=== PATIENT | female | born 1945 | race Two or more races ===

== ENCOUNTER → 2017-06-11 | Outpatient (CLI) | payer BC ==
[~2017-06-11] MED LIST: CARV12.5 PO; GABA-279 PO; HYDR-3713 PO; MEGE20TA3 PO; TRAM50TA2 PO
--- NOTE | 2017-06-27 01:33 | ECWPNPC ---
PATIENT NAME: JOBY PEREZ : 1945 GENDER: FEMALE VISIT DATE: 06/11/2017 DISCHARGE DATE: 06/11/17 1406 VISIT LOCKED DATE TIME: PHYSICIAN: MARIA DOLORES CHRISTIANSEN RESOURCE: MARIA DOLORES CHRISTIANSEN REASON FOR APPOINTMENT 1. RT. ABDOMINAL PAIN HISTORY OF PRESENT ILLNESS FALL RISK SCREENING: SCREENING :NO FALLS IN THE PAST YEAR PAIN SCREENING: PATIENT HAS A COMPLAINT OF ACUTE OR CHRONIC PAIN :YES TODAY'S VISIT: NOTES: REFERRED BY DR AKOSUA CARDENAS/[facility]OME[facility] S/P LAPROSCOPIC DEROOFING OF LIVER CYST 07/16. WAS PAIN FREE FOR 4 MONTHS. PREVIOUSLY THE CYST WOULD BE DRAINED AND WOULD EXPERIENCE ABOUT 3 MONTHS PAIN RELIEF.. ONSET OF PAIN AND CYST ISSUES WAS 6 YEARS AGO. PAIN RETURNS IN A GRADUAL MANNER. CT WAS DONE AND CYST HAD NOT ENLARGED. IT CAN FEEL IF PAIN GOES STRAIGHT THROUGH HER. USUALLY IS IN RIGHT UPPER QUADRANT AND REFERRS TO THE BACK, SOME TIMES AT BACK TO FRONT. STANDING AT SINK AND OTHER ACTIVITIES CAN AGGREVATED THE PAIN. DOES NOT USUALLY OCCUR WHEN LYING DOEN. HEATING PAD CAN HELP. PAIN STARTED THEN LIVER ISSSUE NOTED. NO MRI OF SPINE WAS DONE. NO LOSS OF BOWEL CONTROL. . CURRENT MEDICATIONS TAKING LISINOPRIL 5 MG TABLET 1 TABLET ORALLY ONCE A DAY TAKING CARVEDILOL 12.5 MG TABLET ORALLY TAKING LEVOTHYROXINE SODIUM 100 MCG TABLET 1 TABLET ON AN EMPTY STOMACH IN THE MORNING ORALLY ONCE A DAY TAKING MELATONIN 5 MG TABLET 1 TABLET AT BEDTIME NEEDED WITH FOOD ORALLY ONCE A DAY TAKING FISH OIL 1200 MG CAPSULE 2 CAPSULE ORALLY ONCE A DAY MEDICATION LIST REVIEWED AND RECONCILED WITH THE PATIENT PAST MEDICAL HISTORY PULMONARY EMBOLISM IVC FILTER PLACED ACUTE KIDNEY INJURY ARTHRITIS GERD CATARACT HTN THYROID HEPATIC CYST ALLERGIES N.K.D.A. SURGICAL HISTORY CHOLECYSTECTOMY TUBAL LIGATION MULTIPLE ERCP HEPATIC CYST DRAINAGE X4 HEPATIC CYST DEROOFED FAMILY HISTORY FATHER: MOTHER: 79 YRS, DIAGNOSED WITH DIABETES, HEART DISEASE 1 BROTHER(S) - HEALTHY. 3 SON(S) , 3 DAUGHTER(S) - HEALTHY. 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 CHRISTIAN [id number] [employer] LANGUAGE LANGUAGES SPOKEN:ALBANIAN EDUCATION LEVEL OF EDUCATION:HIGH SCHOOL LEARNING BARRIERS / SPECIAL NEEDS HEARING IMPAIRED?NO VISION IMPAIRED?YES :CORRECTIVE LENSES COGNITIVELY IMPAIRED?NO READINESS TO LEARN?YES LEARNING PREFERENCES?YES :BOOKLETS, HANDOUTS SPECIAL DEVICES?NO PAIN CLINIC PFS, CLERGY, PUBLIC HEALTH REFERRALS PFS REFERRAL NEEDED?NO CLERGY REFERRAL NEEDED?NO PUBLIC HEALTH REFERRAL NEEDED?NO WAS THE PROVIDER NOTIFIED OF ANY PERTINENT INFO?NO HAS THE PATIENT BEEN EDUCATED REGARDING HIS/HER PLAN OF CARE?YES HAS THE PATIENT BEEN EDUCATED REGARDING PAIN, THE RISK FOR PAIN, THE IMPORTANCE OF EFFECTIVE PAIN MANAGEMENT, AND THE PAIN ASSESSMENT PROCESS?YES PATIENT: ____. ADVANCE DIRECTIVES HEALTH CARE PROXY?YES NAME OF HCP CLAUS JACKSON CONTACT # FOR HCP [phone] DO YOU HAVE A DNR?NO LIVING WILL?NO POWER OF PROOF CARRIER?YES NAME OF POA? CLAUS JACKSON PHONE # OF POA? [phone] RETIRED: YES. HOSPITALIZATION/MAJOR DIAGNOSTIC PROCEDURE SURGERY RELATED REVIEW OF SYSTEMS REVIEWED BY: PROVIDER: MARIA DOLORES ABDULP . CONSTITUTIONAL: LEVEL OF FUNCTIONALITY NOT ACTIVE - HAS NOTED RECENT WEIGHT GAIN DESPITE NO DIET CHANGES . ANY CHANGE IN YOUR MEDICAL CONDITION? NO . CHILLS NO . FEVER NO . INFECTION: DO YOU HAVE NEW INFECTIONS? NO . DO YOU HAVE HISTORY OF MRSA? NO . MUSCULOSKELETAL: ANY NEW PATTERNS OF PAIN OR NUMBNESS? NO - HAS BOWEL URGENCY. NOTES STOOLS ARE PALE IN COLOR . SYTEMIC LUPUS NO . GASTROENTEROLOGY: ANY NEW CHANGE IN BOWEL CONTROL? NO . BARRETTS ESOPHAGUS NO . CIRRHOSIS NO . HEPATITIS NO . LIVER FAILURE NO . ACID REFLUX YES - FOUND ON ENDOSCOPY - NO SYMPTOMS . UNEXPLAINED WEIGHT LOSS NO . GENITOURINARY: ANY NEW CHANGE IN BLADDER CONTROL? NO - HAS BLADDER URGENCY . IS THERE A CHANCE YOU COULD BE ? NO . HEMATOLOGY/LYMPH: DO YOU TAKE ANY BLOOD THINNERS? (FOR EXAMPLE- COUMADIN, PLAVIX, AGGRENOX, PLATEL, PRADAXA, OR XARELTO) NO . WHEN WAS YOUR LAST DOSE? DATE: TIME: . LOW PLATELET COUNT NO . SICKLE CELL DISEASE NO . VON WILLIEBRANDS NO . FACTOR V LEIDEN NO . THALLASEMIA NO . ANEMIA NO . EASY BRUISING NO . NEUROLOGY: HAVE YOU FALLEN IN THE PAST 6 MONTHS? NO . ANY NEW EXTREMITY NUMBNESS OR WEAKNESS? NO . HEAD INJURY NO . DEMENTIA NO . CEREBRAL PALSY NO . MULTIPLE SCLEROSIS NO . DIZZINESS NO . HEADACHE NO . STROKES NO . VERTIGO NO . CARDIOLOGY: DO YOU HAVE A PACEMAKER OR DEFIBRILLATOR? NO . ANGINA NO . HEART ATTACK NO . HEART SURGERY NO . CONGESTIVE HEART FAILURE/FLUID OVERLOAD NO . CHEST PAIN NO . HIGH BLOOD PRESSURE ON MEDICATION(S) . IRREGULAR HEART BEAT CONDUCTION DELAYS - SEES DR GUNN Q 6 MONTHS . RESPIRATORY: HAVE YOU BEEN SICK IN THE PAST WEEK? NO . FEVER NO . FLU LIKE SYMPTOMS? NO . CPAP NO . BYPAP NO . ASTHMA NO . EMPHYSEMA NO . CHRONIC LUNG DISEASES NO . SHORTNESS OF BREATH ON EXERTION NO . COUGH NO . SNORING NO . NOTES: PULMONARY EMBOLI 2016 - HAS GI BLEED AND THEN LIVER CYST FILLED WITH BLOOD. NOW OFF BLOOD THINNERS . INTEGUMENTARY: DO YOU HAVE ANY RASHES OR OPEN SORES? NO . ALLERGIC/IMMUNO: ARE YOU ALLERGIC TO SHELLFISH OR IV DYE? NO . ANY NEW ALLERGIES? NO . PSYCHIATRIC: DO YOU HAVE THOUGHTS OF HURTING YOURSELF OR SOMEONE ELSE? NO . ARE YOU ABUSED, NEGLECTED, OR IN AN UNSAFE ENVIRONMENT? NO . ENDOCRINOLOGY: ARE YOU DIABETIC? NO . THYROID DISORDER HYPOTHYROID - ON REPLACEMENT RECENTLY INCREASED BY DR Eric SCHUMACHER . OTHER: DO YOU NEED ANY PRESCRIPTIONS? NO . IF YES, PLEASE LIST: ____ . ANY NEW PROBLEMS WITH YOUR MEDICATIONS? NO . WHEN DID YOU LAST EAT? ____ . WHEN DID YOU LAST DRINK? ____ . WHAT DID YOU LAST DRINK? ____ . NAME OF PERSON DRIVING YOU HOME? ____ . DO YOU HAVE ANY OTHER QUESTIONS OR CONCERNS NO . SKIN: EASY BRUISING UNKNOWN SOURCE . VITAL SIGNS WT 238 LBS, HT 63 IN, BMI 42.16 INDEX, BP 159/82 MM HG, HR 70 /MIN, RR 16 /MIN, TEMP 98.6 F, OXYGEN SAT % 97%, NA INITIALS 12:53. EXAMINATION GENERAL EXAMINATION: PSYCHALERT , ORIENTED X 3 , APPROPRIATE MOOD AND AFFECT , EXCELLANT HISTORIAN. HEENT:NORMOCEPHALIC, NO LYMPHADENOPATHY, NO THYROMEGLY. LUNGS:CLEAR TO AUSCULTATION BILATERALLY, NO WHEEZES, RALES OR RHONCHI. NO INCREASE INN PAIN WITH DEEP BREATH. HEART:NORMAL S1S2, NO MURMURS, CLICK OR RUBS, NO CAROTID BRUITS. ABDOMEN:SOFT, NON-TENDER, NO ORGANOMEGALY, BOWEL SOUNDS ARE NORMAL. MUSCULOSKELETAL:MUSCLE STRENGTH TESTING 5/5 BILATERAL UPPER AND LOWER EXTREMITIES. TENDER WITH PALPATION OVER LOW THORACIC AND LUMBAR SPINOUS PROCESSES.. EXTREMITIES:NO EDEMA. ASSESSMENTS RIGHT UPPER QUADRANT ABDOMINAL PAIN - R10.11 (PRIMARY) PAIN IN THORACIC SPINE - M54.6 OTHER CHRONIC PAIN - G89.29 TREATMENT RIGHT UPPER QUADRANT ABDOMINAL PAIN START TRAMADOL HCL TABLET, 50 MG, 1 TABLET NEEDED, ORALLY, EVERY 6 HRS PRN PAIN, 30 DAY(S), 120, REFILLS 0 [facility] MRI SPINE,THORACIC WITHOUT [id number],SUSAN M 06/11/2017 1:56:45 PM > CERVICAL AND THORACIC SYRINX NOTES: WALK EVERY DAY. PROCEDURE CODES FA211 ESTABILISHED PATIENT LOCATED WITHIN [facility] CHARGE DISPOSITION & COMMUNICATION FOLLOW UP 1 MONTH (REASON: CHECK AUTH FOR THORACIC MRI . ABD PAIN) ELECTRONICALLY SIGNED BY BRENDEN CHEATHAM ON 06/26/2017 AT 07:10 PM EDT DISCLAIMER : THIS IS A VISIT SUMMARY EXTRACTED FROM THE [employer] CHART. IT IS NOT A COPY OF THE [employer] PROGRESS NOTE. ALTON
== END ==
LOC: M PAIN 13:30
PROVIDERS: ATTEND Nurse Practitioner Family
DX: G89.29 Other chronic pain (principal); R10.11 Right upper quadrant pain; M54.6 Pain in thoracic spine; K21.9 Gastro-esophageal reflux disease without esophagitis; I10 Essential (primary) hypertension; E03.9 Hypothyroidism, unspecified; Z79.899 Other long term (current) drug therapy

== ENCOUNTER → 2017-07-25 | Outpatient (CLI) | payer BC ==
--- NOTE | 2017-07-25 23:27 | ECWPNPC ---
PATIENT NAME: JOBY PEREZ : 1945 GENDER: FEMALE VISIT DATE: 07/25/2017 DISCHARGE DATE: 07/25/17 0959 VISIT LOCKED DATE TIME: PHYSICIAN: MARIA DOLORES CHRISTIANSEN RESOURCE: MARIA DOLORES CHRISTIANSEN REASON FOR APPOINTMENT 1. REVIEW MRI HISTORY OF PRESENT ILLNESS HISTORY OF PRESENT ILLNESS: PAIN THE PATIENT DESCRIBES THE PAIN... FALL RISK SCREENING: SCREENING :NO FALLS IN THE PAST YEAR TODAY'S VISIT: NOTES: RATES PAIN LEVEL TODAY 0/10. PAIN BEEN NOT TO BAD. IS ABLE TO STAND FOR A SHORT TIME BUT THEN PAIN STARTS JUST UNDER THE BRA AND RADIATES TO THE RIGHT ABDOMEN. NO LIVER ISSUES. POOR SLEEP BUT NOT DUE TO PAIN. DOES NOTE THAT EATING OR DRINKING CAN PRODUCE EPIGASTRIC PAIN. CURRENT MEDICATIONS TAKING LISINOPRIL 5 MG TABLET 1 TABLET ORALLY ONCE A DAY TAKING CARVEDILOL 12.5 MG TABLET ORALLY TAKING LEVOTHYROXINE SODIUM 100 MCG TABLET 1 TABLET ON AN EMPTY STOMACH IN THE MORNING ORALLY ONCE A DAY TAKING MELATONIN 5 MG TABLET 1 TABLET AT BEDTIME NEEDED WITH FOOD ORALLY ONCE A DAY TAKING FISH OIL 1200 MG CAPSULE 2 CAPSULE ORALLY ONCE A DAY TAKING TRAMADOL HCL 50 MG TABLET 1 TABLET NEEDED ORALLY EVERY 6 HRS PRN PAIN MEDICATION LIST REVIEWED AND RECONCILED WITH THE PATIENT PAST MEDICAL HISTORY PULMONARY EMBOLISM IVC FILTER PLACED ACUTE KIDNEY INJURY ARTHRITIS GERD CATARACT HTN THYROID HEPATIC CYST ALLERGIES N.K.D.A. SURGICAL HISTORY CHOLECYSTECTOMY TUBAL LIGATION MULTIPLE ERCP HEPATIC CYST DRAINAGE X4 HEPATIC CYST DEROOFED SOCIAL HISTORY GENERAL: TOBACCO USE ARE YOU A:NONSMOKER LUNG CANCER SCREENING SMOKING STATUS:NON SMOKER ALCOHOL SCREENING DID YOU HAVE A DRINK CONTAINING ALCOHOL IN THE PAST YEAR?YES HOW OFTEN DID YOU HAVE A DRINK CONTAINING ALCOHOL IN THE PAST YEAR?MONTHLY OR LESS (1 POINT) HOW MANY DRINKS DID YOU HAVE ON A TYPICAL DAY WHEN YOU WERE DRINKING IN THE PAST YEAR?1 OR 2 (0 POINTS) HOW OFTEN DID YOU HAVE SIX OR MORE DRINKS ON ONE OCCASION IN THE PAST YEAR?NEVER (0 POINTS) POINTS1 INTERPRETATIONNEGATIVE 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 LATTER-DAY [id number] CHRISTIAN LANGUAGE LANGUAGES SPOKEN:IRAQI EDUCATION LEVEL OF EDUCATION:HIGH SCHOOL LEARNING BARRIERS / SPECIAL NEEDS HEARING IMPAIRED?NO VISION IMPAIRED?YES :CORRECTIVE LENSES COGNITIVELY IMPAIRED?NO READINESS TO LEARN?YES LEARNING PREFERENCES?YES :BOOKLETS, HANDOUTS SPECIAL DEVICES?NO PAIN CLINIC PFS, CLERGY, PUBLIC HEALTH REFERRALS PFS REFERRAL NEEDED?NO CLERGY REFERRAL NEEDED?NO PUBLIC HEALTH REFERRAL NEEDED?NO WAS THE PROVIDER NOTIFIED OF ANY PERTINENT INFO?NO HAS THE PATIENT BEEN EDUCATED REGARDING HIS/HER PLAN OF CARE?YES HAS THE PATIENT BEEN EDUCATED REGARDING PAIN, THE RISK FOR PAIN, THE IMPORTANCE OF EFFECTIVE PAIN MANAGEMENT, AND THE PAIN ASSESSMENT PROCESS?YES PATIENT: ____. ADVANCE DIRECTIVES HEALTH CARE PROXY?YES NAME OF HCP CLAUS JACKSON CONTACT # FOR HCP [phone] DO YOU HAVE A DNR?NO LIVING WILL?NO POWER OF CAPTAIN FISHING VESSEL?YES NAME OF POA? CLAUS JACKSON PHONE # OF POA? [phone] RETIRED: YES. HOSPITALIZATION/MAJOR DIAGNOSTIC PROCEDURE SURGERY RELATED REVIEW OF SYSTEMS REVIEWED BY: PROVIDER: MARIA DOLORES GORDILLO . CONSTITUTIONAL: ANY CHANGE IN YOUR MEDICAL CONDITION? NO . CHILLS NO . FEVER NO . INFECTION: DO YOU HAVE NEW INFECTIONS? NO . DO YOU HAVE HISTORY OF MRSA? NO . MUSCULOSKELETAL: ANY NEW PATTERNS OF PAIN OR NUMBNESS? NO . GASTROENTEROLOGY: ANY NEW CHANGE IN BOWEL CONTROL? NO . GENITOURINARY: ANY NEW CHANGE IN BLADDER CONTROL? NO . IS THERE A CHANCE YOU COULD BE ? NO . HEMATOLOGY/LYMPH: DO YOU TAKE ANY BLOOD THINNERS? (FOR EXAMPLE- COUMADIN, PLAVIX, AGGRENOX, PLATEL, PRADAXA, OR XARELTO) NO . WHEN WAS YOUR LAST DOSE? DATE: TIME: . NEUROLOGY: HAVE YOU FALLEN IN THE PAST 6 MONTHS? NO . ANY NEW EXTREMITY NUMBNESS OR WEAKNESS? NO . CARDIOLOGY: DO YOU HAVE A PACEMAKER OR DEFIBRILLATOR? NO . RESPIRATORY: HAVE YOU BEEN SICK IN THE PAST WEEK? NO . FEVER NO . FLU LIKE SYMPTOMS? NO . COUGH NO . INTEGUMENTARY: DO YOU HAVE ANY RASHES OR OPEN SORES? YES, PT REPORTS OPEN SORE TO RIGHT ABD FROM HEATING PAD . ALLERGIC/IMMUNO: ARE YOU ALLERGIC TO SHELLFISH OR IV DYE? NO . ANY NEW ALLERGIES? NO . PSYCHIATRIC: DO YOU HAVE THOUGHTS OF HURTING YOURSELF OR SOMEONE ELSE? NO . ARE YOU ABUSED, NEGLECTED, OR IN AN UNSAFE ENVIRONMENT? NO . ENDOCRINOLOGY: ARE YOU DIABETIC? NO . OTHER: DO YOU NEED ANY PRESCRIPTIONS? NO . IF YES, PLEASE LIST: ____ . ANY NEW PROBLEMS WITH YOUR MEDICATIONS? NO . WHEN DID YOU LAST EAT? ____ . WHEN DID YOU LAST DRINK? ____ . WHAT DID YOU LAST DRINK? ____ . NAME OF PERSON DRIVING YOU HOME? ____ . DO YOU HAVE ANY OTHER QUESTIONS OR CONCERNS NO, PT REPORTS FLU SHOT RECEIVED A COUPLE WEEKS AGO . VITAL SIGNS WT 250 LBS, HT 63 IN, BMI 44.28 INDEX, BP 131/85 MM HG, HR 66 /MIN, RR 16 /MIN, TEMP 98.2 F, OXYGEN SAT % 94%, NA INITIALS AW 0903, REVIEWED BY: EM. EXAMINATION GENERAL EXAMINATION: PSYCHALERT , ORIENTED X 3 , APPROPRIATE MOOD AND AFFECT , EXCELLANT HISTORIAN . HEENT:NORMOCEPHALIC, NO LYMPHADENOPATHY, NO THYROMEGLY . LUNGS:CLEAR TO AUSCULTATION BILATERALLY, NO WHEEZES, RALES OR RHONCHI. NO INCREASE INN PAIN WITH DEEP BREATH . HEART:NORMAL S1S2, NO MURMURS, CLICK OR RUBS, NO CAROTID BRUITS . ABDOMEN:SOFT, NON-TENDER, NO ORGANOMEGALY, BOWEL SOUNDS ARE NORMAL . MUSCULOSKELETAL:MUSCLE STRENGTH TESTING 5/5 BILATERAL UPPER AND LOWER EXTREMITIES. FEW TRIGGERPOINTS IDENTIFIED OVER LOW THORACIC PARAVERTBRAL MUSCLES, RIGHT > LEFT. NO TENDERNESS TODAY OVER THORACIC SPINOUS PROCESSES . EXTREMITIES:NO EDEMA . DIAGNOSTIC TESTS REVIEWEDMRI OF THORACIC SPINE COMPLETED ON 07/09/17. DEMONSTRATES AT T5-6 MILD POSTERIOR CENTRAL TO LEFT DISC PROTRUSION WHICH MODERATELY EFFACES ANTERIOR ASPECT OF THE SUBARACHNOID SPACE. T8-9: MILD POSTERIOR DISC PROTRUSION. 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 T11-12 MILD POSTERIOR RIGHT PARACENTRAL TO CENTRAL DISC PROTRUSION. THERE IS EVIDENCE OF A SYRINX EXTENDING FROM T6 TO T9. PER RADIOLOGIST JORGE L NIXON MD AT [facility], HE CAN NOT EXCLUDE AN UNDERLYING NEOPLASTIC COMPONENT, ALTHOUGH SYRINX'S CAN BE DUE TO A PRIOR INFLAMMATORY OR INFECTIOUS PROCESSES. RECOMMENDS FOLLOWUP MRI WITH AND WITHOUT CONTRAST.. ASSESSMENTS RIGHT UPPER QUADRANT ABDOMINAL PAIN - R10.11 (PRIMARY) PAIN IN THORACIC SPINE - M54.6 OTHER CHRONIC PAIN - G89.29 TREATMENT RIGHT UPPER QUADRANT ABDOMINAL PAIN NOTES: CALL IS TRAMADOL NEEDED. USE HEATING PAD WITH CAUTION. WALK DAILY. WILL SEE IF FURTHER ORDERS ARE NEEDED AFTER SEEN BY DR ALLEN. REFERRAL TO:INDY DENISE ([facility])NEUROSURGERY REASON:THORACIC RADICULOPATHY, THORACIC SYRINX PROCEDURE CODES FA211 ESTABILISHED PATIENT [facility] CHARGE DISPOSITION & COMMUNICATION FOLLOW UP AFTER SEEN BY DR ALLEN (REASON: ABD PAIN, ABD PAIN/BACK PAIN) ELECTRONICALLY SIGNED BY BRENDEN CHEATHAM ON 07/25/2017 AT 06:17 PM EDT DISCLAIMER : THIS IS A VISIT SUMMARY EXTRACTED FROM THE [employer] CHART. IT IS NOT A COPY OF THE [employer] PROGRESS NOTE. ALTON
== END ==
LOC: M PAIN 09:00
PROVIDERS: ATTEND Nurse Practitioner Family
DX: G89.29 Other chronic pain (principal); R10.11 Right upper quadrant pain; M54.6 Pain in thoracic spine; I10 Essential (primary) hypertension; E07.9 Disorder of thyroid, unspecified; Z79.899 Other long term (current) drug therapy

== ENCOUNTER → 2022-07-31 | Outpatient (CLI) | payer BC, MEDICARE ==
[~2022-07-31] MED LIST changes: +GABA-1171 PO; -GABA-279 PO
== END ==
LOC: M RAD 10:23
PROVIDERS: ATTEND Physician Assistant
DX: M79.604 Pain in right leg (principal); M79.605 Pain in left leg; R09.89 Other specified symptoms and signs involving the circulatory and respiratory systems